=== PATIENT | male | born 1975 | race Caucasian/White ===

== ENCOUNTER 2022-10-09 20:04 | Inpatient (IN) | payer OTHER ==
[~2022-10-09] VITALS: Ht 185.4 cm; Wt 87.2 kg
[2022-10-09 21:26] LABS: Basophils # (auto) 0 10 ^3/uL (0-0.2); Basophils % (auto) 0.2 % (0.0-2.0); Eosinophils # (auto) 0 10 ^3/uL (0-0.8); Eosinophils % (auto) 0.1 % (0.0-7.0); Hematocrit 44.6 % (41.0-53.0); Hemoglobin 15.8 g/dL (13.5-17.5); Lymphocytes # (auto) 0.6 10 ^3/uL (0.4-5.4); Lymphocytes % (auto) 4.8 % (10.0-50.0); Mean Corpuscular Hemoglobin 33.4 pg (28.0-32.0); Mean Corpuscular Hgb Conc. 35.3 g/dL (32.0-36.0); Mean Corpuscular Volume 94.6 fL (80.0-100.0); Monocytes # (auto) 0.6 10 ^3/uL (0-1.3); Monocytes % (auto) 4.5 % (0.0-12.0); Neutrophils # (auto) 11.6 10 ^3/uL (1.6-8.6); Neutrophils % (auto) 90.4 % (37.0-80.0); Nucleated Red Blood Cells % 0.1 %; Red Blood Cells 4.72 10^6/uL (4.5-5.90); White Blood Cell 12.9 10^3/uL (4.4-10.8)
[2022-10-09 21:27] LABS: Urine Amorphous Crystal FEW /hpf (None Seen); Urine Bacteria NONE SEEN /hpf (None Seen); Urine Blood Negative /uL (Negative); Urine Mucus FEW (None Seen); Urine Specific Gravity 1.022 (1.001-1.035); Urine WBC 4 /hpf (0 - 3)
[2022-10-09 22:07] LABS: Potassium 4.1 mmol/L (3.5-5.1)
[2022-10-09 22:10] LABS: Albumin 4.1 g/dL (3.4-5.0); BUN/Creatinine Ratio 15.9 (10.0-20.0)
[2022-10-09 22:17] LABS: Bilirubin, Total 1.3 mg/dL (0.2-1.0); Total Protein 8.2 g/dL (6.4-8.2)
[2022-10-09] MEDS ORDERED: metroNIDAZOLE 500MG/100ML 100 ML IV ONE (23:15)
[2022-10-09] MEDS ORDERED: ONDANSETRON HCL 4 MG/2 ML VIAL IV ONE (23:15)
[2022-10-09] MEDS ORDERED: cefTRIAXone 1GM/50ML D5W 50 ML IV ONE (23:15)
[2022-10-09] MEDS ORDERED: MORPHINE SULFATE 4 MG/ML SYR/VIAL IV ONE (23:15)
[2022-10-10] MEDS ORDERED: SODIUM CHLORIDE 0.9% 1,000 ML IV SCH (00:30)
[2022-10-10 01:22] LABS: INR 0.97 (0.9-1.15)
[2022-10-10] MEDS: ONDANSETRON HCL 4 MG/2 ML VIAL IV PRN ×3 (04:09→15:42)
[2022-10-10] MEDS: MORPHINE SULFATE INJ 2 MG/ml SYRG IV PRN ×5 (04:10→23:48)
[2022-10-10 05:00] VITALS: BP 133/78
[2022-10-10] MEDS: metroNIDAZOLE 500MG/100ML 100 ML IV SCH ×3 (05:30→22:36)
[2022-10-10] MEDS: cefTRIAXone 1GM/50ML D5W 50 ML IV SCH (08:59)
[2022-10-10 09:00] VITALS: BP_SYST 12; BP_SYST 128; BP_DIAS 77
[2022-10-10] MEDS ORDERED: HYDROmorphone HCL 2 MG/ML VL/or syr IV ONE (09:00)
[2022-10-10] MEDS ORDERED: BUPIVACAINE HCL 0.25% P/F 10 ML VIAL ONE (11:49)
[2022-10-10] MEDS ORDERED: LIDOCAINE W/ EPINEPHRINE 1% 20ML VIAL ONE (11:49)
[2022-10-10] MEDS ORDERED: MIDAZOLAM HCL 2MG/2ML 2ml VIAL (1mg/ml) ONE (11:58)
[2022-10-10] MEDS ORDERED: ROCURONIUM 10MG/ML 10ML VIAL IV ONE (11:58)
[2022-10-10] MEDS ORDERED: fentaNYL CITRATE 5 ML ONE (11:58)
[2022-10-10] MEDS ORDERED: LIDOCAINE 2% (LOCAL ANESTH.) PF 5ml SDV ONE (12:00)
[2022-10-10] MEDS ORDERED: ONDANSETRON HCL 4 MG/2 ML VIAL ONE (12:00)
[2022-10-10] MEDS ORDERED: PROPOFOL 10 MG/ML 20 ML IV ONE (12:01)
[2022-10-10] MEDS ORDERED: LIDOCAINE 1% HCL (LOCAL ANESTH.) INJ 20ML MDV ONE (12:05)
[2022-10-10] MEDS ORDERED: MORPHINE SULFATE INJ 2 MG/ml SYRG IV PRN (12:15)
[2022-10-10] MEDS ORDERED: GLYCOPYRROLATE 0.2 MG/ML 1ML VIAL ONE (13:39)
[2022-10-10] MEDS ORDERED: NEOSTIGMINE 1 MG/ML INJ (10mg/10ML VIAL) ONE (13:39)
[2022-10-10] MEDS: D5W/SOD CHL 0.45%/KCL 20MEQ 1,000 ML IV SCH (14:54)
[2022-10-10 17:00] VITALS: BP 120/77
[2022-10-10 22:00] VITALS: BP 135/87
[2022-10-11] MEDS: D5W/SOD CHL 0.45%/KCL 20MEQ 1,000 ML IV SCH ×3 (02:39→17:20)
[2022-10-11 05:08] VITALS: BP 139/78
[2022-10-11] MEDS: metroNIDAZOLE 500MG/100ML 100 ML IV SCH ×3 (05:08→21:16)
[2022-10-11] MEDS: MORPHINE SULFATE INJ 2 MG/ml SYRG IV PRN ×5 (05:10→20:48)
[2022-10-11 06:30] LABS: Basophils # (auto) 0 10 ^3/uL (0-0.2); Eosinophils # (auto) 0 10 ^3/uL (0-0.8); Hemoglobin 14.4 g/dL (13.5-17.5); Monocytes # (auto) 0.6 10 ^3/uL (0-1.3)
[2022-10-11 06:34] LABS: Basophils % (auto) 0.2 % (0.0-2.0); Eosinophils % (auto) 0.2 % (0.0-7.0); Hematocrit 40.8 % (41.0-53.0); Lymphocytes # (auto) 0.7 10 ^3/uL (0.4-5.4); Lymphocytes % (auto) 8.1 % (10.0-50.0); Mean Corpuscular Hemoglobin 34.4 pg (28.0-32.0); Mean Corpuscular Hgb Conc. 35.4 g/dL (32.0-36.0); Mean Corpuscular Volume 97.1 fL (80.0-100.0); Monocytes % (auto) 6.3 % (0.0-12.0); Neutrophils # (auto) 7.8 10 ^3/uL (1.6-8.6); Neutrophils % (auto) 85.2 % (37.0-80.0); Red Cell Distribution Width 12.8 % (11.8-14.3); White Blood Cell 9.1 10^3/uL (4.4-10.8)
[2022-10-11 06:55] LABS: Albumin 3.2 g/dL (3.4-5.0); BUN/Creatinine Ratio 10.9 (10.0-20.0); Bilirubin, Total 2.6 mg/dL (0.2-1.0); Calcium 8.8 mg/dL (8.5-10.1); Total Protein 6.4 g/dL (6.4-8.2)
[2022-10-11] MEDS: cefTRIAXone 1GM/50ML D5W 50 ML IV SCH (08:49)
[2022-10-11] MEDS: ONDANSETRON HCL 4 MG/2 ML VIAL IV PRN ×2 (08:50→17:20)
[2022-10-11 09:00] VITALS: BP_SYST 100; BP_SYST 134; BP_DIAS 54; BP_DIAS 80
[2022-10-11] MEDS: PANTOPRAZOLE 40 MG/10 ML VIAL INJ IV SCH (10:07)
[2022-10-11 12:55] VITALS: BP 116/63
[2022-10-11 17:00] VITALS: BP 131/75
[2022-10-11 22:00] VITALS: BP 129/79
[2022-10-12] MEDS: MORPHINE SULFATE INJ 2 MG/ml SYRG IV PRN ×3 (00:46→10:25)
[2022-10-12] MEDS: D5W/SOD CHL 0.45%/KCL 20MEQ 1,000 ML IV SCH (04:15)
[2022-10-12 05:00] VITALS: BP 127/90
[2022-10-12] MEDS: ONDANSETRON HCL 4 MG/2 ML VIAL IV PRN (05:13)
[2022-10-12] MEDS: metroNIDAZOLE 500MG/100ML 100 ML IV SCH (06:03)
[2022-10-12 06:23] LABS: Basophils # (auto) 0 10 ^3/uL (0-0.2); Basophils % (auto) 0.1 % (0.0-2.0); Eosinophils # (auto) 0.1 10 ^3/uL (0-0.8); Eosinophils % (auto) 0.9 % (0.0-7.0); Hematocrit 42.4 % (41.0-53.0); Hemoglobin 14.7 g/dL (13.5-17.5); Lymphocytes # (auto) 0.6 10 ^3/uL (0.4-5.4); Lymphocytes % (auto) 5.9 % (10.0-50.0); Mean Corpuscular Hemoglobin 33.7 pg (28.0-32.0); Mean Corpuscular Hgb Conc. 34.7 g/dL (32.0-36.0); Mean Corpuscular Volume 97.2 fL (80.0-100.0); Monocytes # (auto) 0.8 10 ^3/uL (0-1.3); Monocytes % (auto) 7.9 % (0.0-12.0); Neutrophils # (auto) 8.1 10 ^3/uL (1.6-8.6); Neutrophils % (auto) 85.2 % (37.0-80.0); Nucleated Red Blood Cells % 0.1 %; Red Blood Cells 4.36 10^6/uL (4.5-5.90); Red Cell Distribution Width 12.9 % (11.8-14.3); White Blood Cell 9.5 10^3/uL (4.4-10.8)
[2022-10-12 06:35] LABS: Potassium 3.8 mmol/L (3.5-5.1)
[2022-10-12 06:53] LABS: Albumin 2.7 g/dL (3.4-5.0); BUN/Creatinine Ratio 12.1 (10.0-20.0); Bilirubin, Total 1.6 mg/dL (0.2-1.0); Calcium 8.9 mg/dL (8.5-10.1)
[2022-10-12 09:00] VITALS: BP 144/89
[2022-10-12] MEDS: cefTRIAXone 1GM/50ML D5W 50 ML IV SCH (10:25)
[2022-10-12] MEDS: PANTOPRAZOLE 40 MG/10 ML VIAL INJ IV SCH (10:25)
[2022-10-12 13:00] VITALS: BP 144/71
[2022-10-12] MEDS ORDERED: METR500T14 PO (14:44)
[2022-10-12] MEDS ORDERED: AUG875T PO (14:44)
[2022-10-12] MEDS ORDERED: HYDR-4798 PO (15:22)
[2022-10-12 15:53] VITALS: BP 138/70
== END 2022-10-12 16:30 | disposition home or self-care (01) | DRG 853 ==
LOC: ER 20:04 → OVERFLOW 10-10 00:26 → CENTRAL 10-10 04:52
PROVIDERS: ADMIT Nurse Practitioner; ATTEND Internal Medicine
PROC: 0W9G4ZZ Drainage of Peritoneal Cavity, Percutaneous Endoscopic Approach (ICD-10-PCS; 2022-10-10)
PROC: 0DTJ4ZZ Resection of Appendix, Percutaneous Endoscopic Approach (ICD-10-PCS; principal; 2022-10-10 12:01)
DX: A41.9 Sepsis, unspecified organism (principal); K35.33 Acute appendicitis with perforation, localized peritonitis, and gangrene, with abscess; Z72.0 Tobacco use; Z71.6 Tobacco abuse counseling
CPT/HCPCS: 36415; 71045; 74176; 80053; 81001; 83690; 85025; 85610; 85730; 86850; 86900; 86901; 96365; 96368; 96375; C9113; G0378; J0696; J2001; J2250; J2405; J2704; J3490